=== PATIENT | male | born 1955 | race Caucasian/White ===

== ENCOUNTER 2020-08-08 13:10 | Outpatient (CLI) | payer OTHER ==
[~2020-08-08 13:10] MED LIST: Iopamidol 370 76% 100 ML VIAL ONE
--- NOTE | 2020-08-08 14:37 | CT ---
CT soft tissue neck with contrast: 08/08/2020 HISTORY: 64-year-old male with palpable neck mass FINDINGS: Adjacent to the external skin marker, there is a 0.9 x 0.6 x 0.8 cm focal nodule with density that is slightly lower than that of muscle. There is no adjacent fat stranding. It abuts the posterior lateral surface of the tail of the superficial lobe of the left parotid gland. It has the appearance of a nonspecific mildly enlarged lymph node. However, on ultrasound, it did not have the appearance of a normal lymph node, because it was diffusely hyperechoic, with no evidence of fatty hilum. The bilateral parotid glands, and parotid spaces, are normal. No gross abnormality of the larynx, thyroid gland, or upper and mid trachea. 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 No abnormality is identified involving the pharyngeal mucosal, submandibular, sublingual, life science technical officer, retropharyngeal, carotid, and posterior cervical, spaces (other than mild atherosclerosis of bilateral proximal internal carotid arteries without significant stenosis). IMPRESSION: Nonspecific very small 9 mm solid nodule abutting the superficial edge of the tail of the left paroti d gland (it is not arising from the parotid gland). It may be an abnormal lymph node. Options are ultrasound-guided fine-needle aspiration biopsy versus serial follow-up ultrasounds, beginning in 3 m [facility].
== END 2020-08-08 13:11 | disposition home or self-care (01) ==
LOC: BICCT 13:10
PROVIDERS: ATTEND Specialist
DX: R22.1 Localized swelling, mass and lump, neck (principal); K11.8 Other diseases of salivary glands
CPT/HCPCS: 70491; 82565

== ENCOUNTER 2020-08-29 07:18 | Outpatient (CLI) | payer OTHER ==
[2020-08-30 03:58] LABS: SARS-CoV-2 MS2 Positive; SARS-CoV-2 N Gene Negative; SARS-CoV-2 S Gene Negative; SARS-CoV-2 by NAA Not Detected (NotDetected); SARS-CoV-2 orf1ab Negative
--- NOTE | 2020-08-30 12:36 | EKG ---
Test Reason : Blood Pressure : / mmHG Vent. Rate : 086 BPM Atrial Rate : 086 BPM P-R Int : 170 ms QRS Dur : 080 ms QT Int : 358 ms P-R-T Axes : 060 017 031 degrees QTc Int : 428 ms Normal sinus rhythm Nonspecific ST abnormality Abnormal ECG No previous ECGs available Confirmed by DR. Faye ATKINS ([id number]) on 08/30/2020 12:36:09 PM Referred By: GAB Confirmed By:DR. Faye ATKINS
== END 2020-08-29 07:19 | disposition home or self-care (01) ==
LOC: LABBT 07:18
PROVIDERS: ATTEND Specialist
DX: Z01.818 Encounter for other preprocedural examination (principal); Z01.812 Encounter for preprocedural laboratory examination; Z20.828 Contact with and (suspected) exposure to other viral communicable diseases; R22.1 Localized swelling, mass and lump, neck; D17.9 Benign lipomatous neoplasm, unspecified
CPT/HCPCS: 87635; 93005; 93010; U0003

== ENCOUNTER 2020-09-01 08:39 | Day surgery (SDC) | payer OTHER ==
[2020-08-31 13:30] VITALS: BMI 35.9
[2020-09-01] MEDS ORDERED: Famotidine/PF 20 mg/2ml Vial ONE (10:27)
[2020-09-01] MEDS ORDERED: HYDROmorphone 2 MG/ML VIAL ONE (10:27)
[2020-09-01] MEDS ORDERED: Fentanyl 100 MCG/2 ML VIAL ONE ×3 (10:27→13:16)
[2020-09-01] MEDS ORDERED: Lidocaine 1% w/Epinephrine 1:100K 20 ML VIAL ONE (10:31)
[2020-09-01] MEDS ORDERED: Bacitracin Zinc Ointment 30 gm TUBE ONE (10:31)
[2020-09-01] MEDS ORDERED: Ondansetron PF 4 MG/2 ML Vial ONE (11:30)
[2020-09-01] MEDS ORDERED: Dexamethasone 20 MG/5 ML VIAL ONE (11:30)
[2020-09-01] MEDS ORDERED: Lidocaine 1% PF 5 ML VIAL ONE (11:30)
[2020-09-01] MEDS ORDERED: Glycopyrrolate 0.2 MG/ML 5 ML SYRINGE ONE (11:30)
[2020-09-01] MEDS ORDERED: PHENYLEPHRINE-NS 100 MCG/ML 10 ML SYRINGE ONE (11:30)
[2020-09-01] MEDS ORDERED: PROPOFOL 200 MG/20 ML VIAL ONE (11:30)
[2020-09-01] MEDS ORDERED: Rocuronium Bromide 10 MG/ML (10ML VIAL) ONE (11:30)
[2020-09-01] MEDS ORDERED: Promethazine HCl 25 MG/ML VIAL ONE (13:19)
[2020-09-01] MEDS ORDERED: HYDROcodone/Acetaminophen 5/325 mg Tablet ONE (14:27)
--- NOTE | 2020-09-02 14:18 | OP ---
DATE OF PROCEDURE: 09/01/2020 PREOPERATIVE DIAGNOSES: 1. 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 POSTOPERATIVE DIAGNOSES: 1. 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 PROCEDURES PERFORMED: 1. Left superficial parotidectomy with facial nerve dissection. 2. 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 PROCEDURE IN DETAIL: After consent was obtained, the patient was identified, brought to the operating room and placed on the operating table in supine position. General endotracheal anesthesia was obtained as was a facial nerve monitor and the patient was positioned for surgery. The area in the preauricular and upper cervical area along the natural skin crease was infiltrated with 1% lidocaine and 1:100,000 epinephrine. After the patient was prepped and draped, we proceeded with an incision with a 15 blade through the skin and subcutaneous tissues down to the level of SMAS and parotid fascia. We then elevated the facial flap at this level with care not to injure the facial nerve. Dissection then continued along the anterior aspect of sternocleidomastoid and the preauricular region and dissection was carried down to the posterior belly of the digastric. Careful dissection between the posterior belly of the digastric and the pointer cartilage revealed the trunk of the facial nerve, which was dissected along its length until it was into superior and inferior main branches. We then able to address the lesion within the tail of parotid and carefully removed that without injury to the facial nerve. This was sent for permanent histologic evaluation. The wound was then closed in layers after hemostasis was obtained and the skin was closed with 6-0 Prolene suture. A sterile dressing was applied. We then repositioned the patient and addressed the submental area. An incision was made in the submental area and carried down through the skin and subcutaneous tissues and platysma. We then encountered a large fatty tumor, which was encapsulated and dissected carefully from the submental area. Ultimately, it was reflected from the anterior digastric muscles and the specimen was sent intact to Histology for permanent histologic evaluation. Bleeding points were identified and the skin was pexed down to the submental to obliterate the space. The space was obliterated using 4-0 Monocryl sutures. The skin was then closed with layers with Monocryl used to reapproximate the dermis and 6-0 Prolene for the skin. Sterile dressings were applied. The patient was awakened and taken to recovery room in a stable condition prior to discharge home. Job ID: [id number]
== END 2020-09-01 15:37 | disposition home or self-care (01) ==
LOC: SDC 08:39
PROVIDERS: ATTEND Specialist
PROC: 0KB30ZZ Excision of Left Neck Muscle, Open Approach (ICD-10-PCS; principal; 2020-09-01)
PROC: 0CBC0ZZ Excision of Left Parotid Duct, Open Approach (ICD-10-PCS; principal; 2020-09-01)
DX: K11.8 Other diseases of salivary glands (principal); D17.0 Benign lipomatous neoplasm of skin and subcutaneous tissue of head, face and neck; I10 Essential (primary) hypertension; E78.5 Hyperlipidemia, unspecified; F41.9 Anxiety disorder, unspecified; G89.29 Other chronic pain; M10.9 Gout, unspecified; F17.210 Nicotine dependence, cigarettes, uncomplicated; E66.9 Obesity, unspecified; Z68.35 Body mass index [BMI] 35.0-35.9, adult; Z21 Asymptomatic human immunodeficiency virus [HIV] infection status; Z79.1 Long term (current) use of non-steroidal anti-inflammatories (NSAID); Z79.891 Long term (current) use of opiate analgesic; Z79.899 Other long term (current) drug therapy
CPT/HCPCS: 88304; 88307; J1100; J1170; J2405; J2550; J2704; J3010; S0028

== ENCOUNTER 2020-09-01 18:47 | Emergency (ER) | payer OTHER ==
[2020-09-01] MEDS ORDERED: Morphine 4 MG/ML VIAL ONE (19:33)
[2020-09-01] MEDS ORDERED: Ondansetron PF 4 MG/2 ML Vial ONE (19:33)
== END 2020-09-01 20:58 | disposition home or self-care (01) ==
LOC: ERS 18:47
DX: L76.32 Postprocedural hematoma of skin and subcutaneous tissue following other procedure (principal); F17.210 Nicotine dependence, cigarettes, uncomplicated; B20 Human immunodeficiency virus [HIV] disease; M10.9 Gout, unspecified
CPT/HCPCS: 96374; 96375; J2270; J2405

== ENCOUNTER 2022-01-25 12:43 | Outpatient (CLI) | payer MEDICARE, OTHER | END 2022-01-25 12:44 | disposition home or self-care (01) | LOC: BICULT 12:43 | PROVIDERS: ATTEND Family Medicine | DX: R22.1 Localized swelling, mass and lump, neck (principal) | CPT/HCPCS: 76536 ==

== ENCOUNTER 2022-02-07 14:38 | Outpatient (CLI) | payer MEDICARE, OTHER | END 2022-02-07 14:39 | disposition home or self-care (01) | LOC: BICMAMMO 14:38 | PROVIDERS: ATTEND Family Medicine | DX: N63.0 Unspecified lump in unspecified breast (principal) | CPT/HCPCS: 77066; G0279 ==

== ENCOUNTER 2022-02-20 14:42 | Outpatient (CLI) | payer MEDICARE, OTHER | END 2022-02-20 14:43 | disposition home or self-care (01) | LOC: BICCT 14:42 | PROVIDERS: ATTEND Specialist | DX: J31.0 Chronic rhinitis (principal) ==

== ENCOUNTER 2023-12-04 10:41 | Outpatient (CLI) | payer OTHER, MEDICAID | END 2023-12-04 10:42 | disposition home or self-care (01) | LOC: BICCT 10:41 | PROVIDERS: ATTEND Family Medicine | DX: R49.0 Dysphonia (principal); I65.23 Occlusion and stenosis of bilateral carotid arteries; J34.9 Unspecified disorder of nose and nasal sinuses; M47.812 Spondylosis without myelopathy or radiculopathy, cervical region; M50.30 Other cervical disc degeneration, unspecified cervical region; M25.78 Osteophyte, vertebrae; Z87.81 Personal history of (healed) traumatic fracture | CPT/HCPCS: 70491; 82565 ==